=== PATIENT | female | born 2000 | race Hispanic/Latino ===

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

== ENCOUNTER 2025-02-18 19:00 | Emergency (ER) | payer BC, OTHER ==
--- OUTSIDE RECORDS SUMMARY | 2025-02-18 19:03 | XMS REPORT | Continuity of Care Document ---
Author Name Unknown Address [address] [facility] [facility] [address] [place] [address] [facility] Address [address] [facility] [address] [place] [address] Care Team Providers Care Stock Taker Name Role Phone Vitaly Savage Attending Clinician Unavailable Payers Payer Name Policy Type Policy Number Effective Date Expirati on Date Source [place] [id number] [facility] Problems Condition Name Condition Details Condition Category Status Onset Date Resolution Date Last Treatment Date Treating Clinician Comments Source Dehydratio n Dehydratio n Problem [facility] Hypothyroi dism Hypothyroi dism Problem [facility] Body mass index 40+ - severely obese Body mass index (BMI) 45.0-49.9, adult Problem [facility] Mixed hyperlipid emia Hyperlipem ia, mixed Problem [facility] Social History Social Habit Start Date Stop Date Quantity Comments Source History of Tobacco Use [facility] Sex Assigned At [facility] Smoking Status Start Date Stop Date Source Never Smoker [facility] Medications Ordered Medication Name Filled Medication Name Start Date Stop Date Current Medication? Ordering Clinician Indication Dosage Frequency Signature (SIG) Comments Components Source Levothyroxi ne Sodium Levothyroxi ne Sodium Yes Vitaly Savage 1 tablet on an empty stomach in the morning [facility] Phentermine HCl Phentermine HCl Yes Vitaly Savage 1 capsule [facility] Levothyroxi ne Sodium 75 MCG Levothyroxi ne Sodium 75 MCG No QD Levothyrox ine Sodium 75 MCG Levothyroxi ne Sodium 75 MCG Levothyroxi ne Sodium 75 MCG No Levothyrox ine Sodium 75 MCG Levothyroxi ne Sodium 75 MCG Levothyroxi ne Sodium 75 MCG No Levothyrox ine Sodium 75 MCG Vital Signs Vital Name Observation Time Observation Value Comments S isabella height 2022-05-07 11:40:00 63 [in_i] Commo n [facility] weight 2022-05-07 11:40:00 300 [lb_av] Comm on [facility] temperature 2022-05-07 11:40:00 97 [degF] Comm on [facility] bmi 2022-05-07 11:40:00 53.14 kg/m2 Comm on [facility] height 2021-08-26 15:00:00 63 [in_i] Commo n [facility] weight 2021-08-26 15:00:00 300 [lb_av] Comm on [facility] temperature 2021-08-26 15:00:00 98 [degF] Comm on [facility] bmi 2021-08-26 15:00:00 53.14 kg/m2 Comm on [facility] height 2021-05-26 09:50:00 63 [in_i] Commo n [facility] weight 2021-05-26 09:50:00 302.1 [lb_av] Co mmon [facility] temperature 2021-05-26 09:50:00 97.2 [degF] Com mon [facility] bmi 2021-05-26 09:50:00 53.51 kg/m2 Comm on [facility] oximetry 2021-05-26 09:50:00 97 % Commo n [facility] respiratory rate 2021-05-26 09:50:00 17 /min Common [facility] blood pressure systolic 2021-05-26 09:50:00 132 mm[Hg] Common [facility] blood pressure diastolic 2021-05-26 09:50:00 70 mm[Hg] [facility] Encounters Start Date/Time End Date/Time Encounter Type Admission Type Attending Clinicians Care Facility Care Department Encounter ID Source 2022-08-28 10:30:00 Outpatient Savage, Vitaly STLMLC STL[facility] [id number] [facility] 2022-05-01 11:22:00 Outpatient Savage, Vitaly STLMLC STL[facility]C [id number] [facility] 2021-11-19 14:07:21 Outpatient Savage, Vitaly STLMLC STLMLC [id number] [facility] 2021-11-19 14:05:18 Outpatient Savage, Viatly STLMLC STLMLC [id number] [facility] 2021-11-19 13:33:01 Outpatient Savage, Vitaly STLMLC STLMLC [id number] [facility] 2021-11-19 12:41:50 Outpatient Savage, Vitaly STLMLC STLMLC [id number] [facility] 2021-11-19 11:07:33 Outpatient Savage, Vitaly STLMLC STLMLC [id number] [facility] 2021-11-19 11:04:38 Outpatient Savage, Vitaly STLMLC STLMLC [id number] [facility] 2021-11-19 10:58:06 Outpatient Savage, Vitaly STLMLC STLMLC [id number] [facility] 2022-08-27 00:00:00 2022-08-27 00:00:00 (TEL) STLMLC STLMLC [id number] [facility] 2022-08-19 15:45:46 2022-08-19 15:45:46 Outpatient [facility]FA MARGARET [id number] [facility] Ar[facility] 2022-05-07 00:00:00 2022-05-07 00:00:00 OFFICE VISIT EST PT LEVEL 3 STLMLC STLMLC [id number] [facility] 2022-04-21 00:00:00 2022-04-21 00:00:00 (TEL) STLMLC STLMLC [id number] [facility] 2021-08-26 00:00:00 2021-08-26 00:00:00 OFFICE VISIT EST PT LEVEL 3 [facility]LMLC STLMLC [id number] [facility] 2021-08-19 00:00:00 2021-08-19 00:00:00 (TEL) STLMLC STLMLC [id number] [facility] 2021-05-26 00:00:00 2021-05-26 00:00:00 OFFICE VISIT ESTAB PT LEVEL 4 STLMLC STLMLC [id number] [facility] 2020-12-30 00:00:00 2020-12-30 00:00:00 Outpatient STLMLC STL[facility]C [id number] [facility] 2020-11-01 00:00:00 2020-11-01 00:00:00 Outpatient STLMLC STL[facility]C [id number] [facility] 2019-12-27 00:00:00 2019-12-27 00:00:00 Outpatient [facility] [id number] [facility] 2019-12-07 09:45:00 2019-12-07 09:45:00 [facility] [id number] [facility] 2019-10-30 08:00:00 2019-10-30 08:00:00 [facility] [id number] [facility] 2019-09-28 08:15:00 2019-09-28 08:15:00 [facility] [id number] [facility] 2019-08-16 08:00:00 2019-08-16 08:00:00 Outpatient [facility] [id number] [facility] 2019-06-12 15:45:00 2019-06-12 15:45:00 Outpatient [facility] [id number] [facility] 2019-05-08 14:15:00 2019-05-08 14:15:00 Outpatient [facility] [id number] [facility]
[2025-02-18] MEDS ORDERED: DICYCLOMINE HCL 20 MG/2 ML AMP IM ONE (21:26)
[2025-02-18] MEDS ORDERED: ONDANSETRON 4 MG/2 ML VIAL ONE ×2 (21:26→22:10)
[2025-02-18] MEDS ORDERED: FAMOTIDINE 20 MG/2 ML VIAL IV ONE (21:26)
[2025-02-18] MEDS ORDERED: NA CHLORIDE 0.9% 1,000 ML ONE (21:27)
[2025-02-18 21:39] LABS: Absolute Lymphocytes (CBC) 0.7 K/uL (0.7-4.9); Absolute Monocytes 0.3 K/uL (0.1-1.3); Absolute Neutrophil 7.5 K/uL (1.8-8.0); Basophils % 0.4 % (0-1.3); Eosinophils % 0.1 % (0-4.4); Hematocrit 41.6 % (36.0-45.0); Hemoglobin 14.1 g/dL (12.0-15.0); Lymphocytes % 8.5 % (15.3-44.8); MCHC 33.8 g/dL (32.0-36.0); MCV 88.8 fL (80-100); MPV 8.1 fL (7.6-11.3); Monocytes % 3.8 % (3.3-12.3); Neutrophils % 87.2 % (41.7-73.7); Nucleated Red Blood Cells % 0.1 % (0-0); Platelets 306 thou/uL (152-406); RBC Red Blood Cell Count 4.69 M/uL (3.86-4.86); Red Cell Distribution Width 15.6 % (12.1-15.2)
[2025-02-18 22:00] LABS: Albumin 3.6 g/dL (3.4-5.0); Anion Gap 9.5 mEq/L (5.0-15.0); Bilirubin Total 0.5 mg/dL (0.2-1.0); Globulin 3.7 g/dL (2.3-3.5); Potassium 3.5 mEq/L (3.5-5.1); Protein, Total 7.3 g/dL (6.4-8.2); Troponin High Sensitivity 7.5 pg/mL (<58.9)
--- NOTE | 2025-02-18 23:05 | ER ---
Nurse's Notes [facility] Name: Monika Anand Age: 24 yrs Sex: Female : 2000 Arrival Date: 02/18/2025 Time: 19:00 Bed 5 Private MD: Diagnosis: Acute gastroenteritis Presentation: 02/18 19:28 Chief complaint: Patient states: n/v/d, weakness, and chest pain starting this morning. al5 Coronavirus screen: At this time, the client does not indicate any symptoms associated with coronavirus-19. Ebola Screen: No symptoms or risks identified at this time. Initial Sepsis Screen: Does the patient meet any 2 criteria? HR > 90 bpm. No. Patient's initial sepsis screen is negative. Does the patient have a suspected source of infection? No. Patient's initial sepsis screen is negative. Risk Assessment: Do you want to hurt yourself or someone else? Patient reports no desire to harm self or others. Onset of symptoms was February 18, 2025. 19:28 Method Of Arrival: Ambulatory al5 19:28 Acuity: STACEY 3 al5 Triage Assessment: 19:29 General: Appears in no apparent distress. uncomfortable, Behavior is calm, cooperative. al5 Pain: Complains of pain in chest and suprapubic area Pain currently is 8 out of 10 on a pain scale. EENT: No signs and/or symptoms were reported regarding the EENT system. Neuro: Level of Consciousness is awake, alert, obeys commands, Oriented to person, place, time, situation. Cardiovascular: Capillary refill < 3 seconds Patient's skin is warm and dry. Respiratory: Airway is patent Respiratory effort is even, unlabored, Respiratory pattern is regular, symmetrical. GI: patient actively vomiting Reports lower abdominal pain, diarrhea, nausea, vomiting. : No signs and/or symptoms were reported regarding the genitourinary system. Derm: Skin is intact, is healthy with good turgor, Skin is pink, warm \T\ dry. normal. Musculoskeletal: No signs and/or symptoms reported regarding the musculoskeletal system. VP MEDICAL: 19:30 LMP 02/17/2025, unknown al5 Historical: - Allergies: 19:29 No Known Allergies; al5 - PMHx: 19:29 Thyroid problem; al5 - PSHx: 19:29 None; al5 - Immunization history:: Adult Immunizations up to date. - Infectious Disease History:: Denies. - Social history:: Smoking status: Reported history of juuling and/or vaping. - Family history:: not pertinent. Screenin:30 [facility] ED Fall Risk Assessment (Adult) History of falling in the last 3 months, al5 including since admission No falls in past 3 months (0 pts) Confusion or Disorientation No (0 pts) Intoxicated or Sedated No (0 pts) Impaired Gait No (0 pts) Mobility Assist Device Used No (0 pt) Altered Elimination No (0 pt) Score/Fall Risk Level 0 - 2 = Low Risk Maintained a safe environment. Abuse screen: Denies threats or abuse. Denies injuries from another. Nutritional screening: No deficits noted. Tuberculosis screening: No symptoms or risk factors identified. Assessment: 19:30 Reassessment: see triage assessment. al5 22:26 Reassessment: Patient appears in no apparent distress at this time. Patient and/or bm8 family updated on plan of care and expected duration. Pain level reassessed. Patient is alert, oriented x 3, equal unlabored respirations, skin warm/dry/pink. Patient states feeling better. Patient states symptoms have improved. GI: Abdomen is obese, Bowel sounds present X 4 quads. Reports nausea. 23:30 Reassessment: Patient appears in no apparent distress at this time. Patient and/or bm8 family updated on plan of care and expected duration. Pain level reassessed. Patient is alert, oriented x 3, equal unlabored respirations, skin warm/dry/pink. Pt waiting shot time for medication just received. Patient states symptoms have improved. 02/19 00:07 Reassessment: Patient appears in no apparent distress at this time. Patient and/or bm8 family updated on plan of care and expected duration. Pain level reassessed. Patient is alert, oriented x 3, equal unlabored respirations, skin warm/dry/pink. Patient states feeling better. Patient states symptoms have improved. Vital Signs: 02/18 19:28 BP 122 / 64; Pulse 106; Resp 18; Temp 99.5; Pulse Ox 97% on R/A; Weight 106.59 kg; al5 Height 5 ft. 3 in. ; Pain 8/10; 21:36 BP 133 / 78; Pulse 88; Resp 18; Temp 99.2; Pulse Ox 99% ; Pain 6/10; bm8 22:26 BP 115 / 62; Pulse 85; Resp 17; Temp 99.2; Pulse Ox 98% ; Pain 5/10; bm8 23:30 BP 121 / 74; Pulse 71; Resp 18; Temp 98.9; Pulse Ox 100% ; Pain 4/10; bm8 02/19 00:07 BP 115 / 68; Pulse 81; Resp 18; Temp 98.9; Pulse Ox 100% ; Pain 2/10; bm8 02/18 19:28 Body Mass Index 41.63 (106.59 kg, 160.02 cm) al5 02/18 19:28 Pain Scale: Adult al5 21:36 Pain Scale: Adult bm8 22:26 Pain Scale: Adult bm8 23:30 Pain Scale: Adult bm8 02/19 00:07 Pain Scale: Adult bm8 Albert Coma Score: 02/18 21:36 Eye Response: spontaneous(4). Motor Response: obeys commands(6). Verbal Response: bm8 oriented(5). Total: 15. 22:26 Eye Response: spontaneous(4). Motor Response: obeys commands(6). Verbal Response: bm8 oriented(5). Total: 15. 02/19 00:07 Eye Response: spontaneous(4). Motor Response: obeys commands(6). Verbal Response: bm8 oriented(5). Total: 15. ED Course: 02/18 19:04 Patient arrived in ED. sj2 19:04 Griffin Smiley MD is Attending Physician. rt 19:29 Triage completed. al5 19:30 Arm band placed on right wrist. Patient placed in waiting room, in view of staff al5 members, Patient notified of wait time. 19:30 Patient has correct armband on for positive identification. Provided Education on: al5 notification of wait time. 19:30 No provider procedures requiring assistance completed. al5 21:24 Kalia Hair, RN is Primary Nurse. bm8 21:36 Client placed on continuous cardiac and pulse oximetry monitoring. NIBP monitoring bm8 applied. Pulse ox on. NIBP on. Door closed. Noise minimized. Pillow given. Verbal reassurance given. Head of bed elevated. 21:36 Initial lab(s) drawn, by ED staff, sent to lab. EKG done, by ED staff, reviewed by Griffin Smiley MD. Inserted saline lock: 20 gauge in right antecubital area, using aseptic technique. Blood collected. Flushed with 10 mL NS. Patient maintains SpO2 saturation greater than 95% on room air. 23:31 IV discontinued, intact, bleeding controlled, No redness/swelling at site. Pressure bm8 dressing applied. Administered Medications: 21:35 Drug: Famotidine IVP 20 mg IVP once; dilute with 10 mL 0.9% NaCl; give over 2 minutes bm8 Route: IVP; Site: right antecubital; 22:26 Follow up: Response: No adverse reaction bm8 21:35 Drug: NS 0.9% IV 1000 ml IV at 1 bolus Per protocol; to be given as a bolus over 60 bm8 minutes Route: IV; Rate: 1 bolus; Site: right antecubital; 22:26 Follow up: Response: No adverse reaction; IV Status: Completed infusion bm8 21:36 Drug: Ondansetron IVP 4 mg IVP once; over 2 minutes Route: IVP; Site: right antecubital;bm8 22:26 Follow up: Response: No adverse reaction bm8 21:36 Drug: Dicyclomine IM 20 mg IM once Route: IM; Site: right deltoid; bm8 22:26 Follow up: Response: No adverse reaction bm8 22:20 Drug: Ondansetron IVP 4 mg IVP once; over 2 minutes Route: IVP; Site: right antecubital;bm8 02/19 00:08 Follow up: Response: No adverse reaction bm8 02/18 23:30 Drug: Ketorolac IVP 15 mg IVP once Route: IVP; Site: right antecubital; bm8 02/19 00:08 Follow up: Response: No adverse reaction bm8 02/18 23:30 Drug: Promethazine IVP 12.5 mg IVP once Route: IVP; Site: right antecubital; bm8 02/19 00:08 Follow up: Response: No adverse reaction bm8 Medication: 02/18 19:30 VIS not applicable for this client. al5 Outcome: 23:04 Discharge ordered by rt 23:31 Discharged to home ambulatory, 8 23:31 Condition: stable 23:31 Discharge instructions given to patient, family, Instructed on discharge instructions, follow up and referral plans. Demonstrated understanding of instructions, follow-up care, Prescriptions given X 23:32 Prescriptions given X 2, bm8 02/19 00:09 Patient left the ED. bm8 Signatures: Griffin Smiley MD MD rt McDonald, Brad RN RN bm8 Kylah Amador RN RN al5 Jourdan Perkins [facility]
--- NOTE | 2025-02-18 23:05 | EDPHYS ---
Physician Documentation [facility] Name: Monika Anand Age: 24 yrs Sex: Female : 2000 Arrival Date: 02/18/2025 Time: 19:00 Bed 5 Private MD: ED Physician Griffin Smiley HPI: 02/18 19:52 This 24 yrs old Female presents to ER via Ambulatory with complaints of rt Nausea/Vomiting/Diarrhea, General Weakness. 19:52 Patient presents to the ED with nausea, vomiting, diarrhea, generalized weakness rt starting today. Patient states that she not been able to keep anything to eat or drink by mouth, reports that the vomiting and diarrhea are nonbloody. Reports heartburn sensation as well as a generalized crampy abdominal pain. Symptoms are moderate in severity, no other aggravating or alleviating factors.. 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 - Infectious Disease History:: Denies. - Social history:: Smoking status: Reported history of juuling and/or vaping. - Family history:: not pertinent. ROS: 19:52 Constitutional: Negative for fever, chills, and weight loss, Respiratory: Negative for rt shortness of breath, cough, wheezing, and pleuritic chest pain, MS/Extremity: Negative for injury and deformity, Skin: Negative for injury, rash, and discoloration, Neuro: Negative for headache, weakness, numbness, tingling, and seizure, 19:52 Abdomen/GI: Positive for abdominal pain, nausea, vomiting, and diarrhea, Exam: 19:52 Constitutional: This is a well developed, well nourished patient who is awake, alert, rt and in no acute distress. Head/Face: Normocephalic, atraumatic. Chest/axilla: Normal chest wall appearance and motion. Nontender with no deformity. No lesions are appreciated. Cardiovascular: Regular rate and rhythm with a normal S1 and S2. No gallops, murmurs, or rubs. Normal PMI, no JVD. No pulse deficits. Respiratory: Lungs have equal breath sounds bilaterally, clear to auscultation and percussion. No rales, rhonchi or wheezes noted. No increased work of breathing, no retractions or nasal flaring. Abdomen/GI: Soft, non-tender, with normal bowel sounds. No distension or tympany. No guarding or rebound. No evidence of tenderness throughout. Skin: Warm, dry with normal turgor. Normal color with no rashes, no lesions, and no evidence of cellulitis. MS/ Extremity: Pulses equal, no cyanosis. Neurovascular intact. Full, normal range of motion. Neuro: Awake and alert, GCS 15, oriented to person, place, time, and situation. Cranial nerves II-XII grossly intact. Motor strength 5/5 in all extremities. Sensory grossly intact. Cerebellar exam normal. Normal gait. 19:52 ECG was reviewed by the Attending Physician. Vital Signs: 19:28 BP 122 / 64; Pulse 106; Resp 18; Temp 99.5; Pulse Ox 97% on R/A; Weight 106.59 kg; al5 Height 5 ft. 3 in. ; Pain 8/10; 21:36 BP 133 / 78; Pulse 88; Resp 18; Temp 99.2; Pulse Ox 99% ; Pain 6/10; bm8 22:26 BP 115 / 62; Pulse 85; Resp 17; Temp 99.2; Pulse Ox 98% ; Pain 5/10; bm8 23:30 BP 121 / 74; Pulse 71; Resp 18; Temp 98.9; Pulse Ox 100% ; Pain 4/10; bm8 02/19 00:07 BP 115 / 68; Pulse 81; Resp 18; Temp 98.9; Pulse Ox 100% ; Pain 2/10; bm8 02/18 19:28 Body Mass Index 41.63 (106.59 kg, 160.02 cm) al5 02/18 19:28 Pain Scale: Adult al5 21:36 Pain Scale: Adult bm8 22:26 Pain Scale: Adult bm8 23:30 Pain Scale: Adult bm8 02/19 00:07 Pain Scale: Adult bm8 Albert Coma Score: 02/18 21:36 Eye Response: spontaneous(4). Motor Response: obeys commands(6). Verbal Response: bm8 oriented(5). Total: 15. 22:26 Eye Response: spontaneous(4). Motor Response: obeys commands(6). Verbal Response: bm8 oriented(5). Total: 15. 02/19 00:07 Eye Response: spontaneous(4). Motor Response: obeys commands(6). Verbal Response: bm8 oriented(5). Total: 15. MDM: 02/18 19:33 Medical Screening Exam initiated rt 23:27 Differential diagnosis: Gastroenteritis, viral syndrome. Data reviewed: vital signs, rt nurses notes, lab test result(s). I considered the following discharge prescriptions or medication management in the emergency department Medications were administered in the Emergency Department. See MAR. Test considered but Not performed: CT: Patient has no focal abdominal tenderness, symptoms occurred after eating a hamburger, low suspicion for appendicitis, cholecystitis clinically. Do not believe that she requires CT scan at this time, vomiting improving with treatment in the ED, return precautions were discussed.. Counseling: I had a detailed discussion with the patient and/or guardian regarding the historical points, exam findings, and any diagnostic results supporting the discharge/admit diagnosis, lab results, the need for outpatient follow up, to return to the emergency department if symptoms worsen or persist or if there are any questions or concerns that arise at home. Response to treatment: the patient's symptoms have markedly improved after treatment. 02/18 19:34 Order name: CBC with Diff rt 02/18 19:34 Order name: CMP; Complete Time: 22:24 rt 02/18 19:34 Order name: Lipase; Complete Time: 22:24 rt 02/18 19:34 Order name: Troponin HS; Complete Time: 22:24 rt 02/18 19:34 Order name: Test, Serum; Complete Time: 22:24 rt 02/18 22:45 Order name: Manual Differential EDMS 02/18 19:34 Order name: EKG; Complete Time: 19:34 rt 02/18 19:34 Order name: IV Saline Lock; Complete Time: 21:36 rt 02/18 19:34 Order name: Labs collected and sent; Complete Time: 21:36 rt 02/18 19:34 Order name: EKG - Nurse/Tech; Complete Time: 19:37 rt EC:52 Rate is 103 beats/min. Rhythm is regular, Sinus tachycardia. QRS [place] is Normal. [place] rt interval is normal. QRS interval is normal. QT interval is normal. No Q waves. T waves are Normal. No ST changes noted. Interpreted by me. Administered Medications: 21:35 Drug: Famotidine IVP 20 mg IVP once; dilute with 10 mL 0.9% NaCl; give over 2 minutes bm8 Route: IVP; Site: right antecubital; 22:26 Follow up: Response: No adverse reaction bm8 21:35 Drug: NS 0.9% IV 1000 ml IV at 1 bolus Per protocol; to be given as a bolus over 60 bm8 minutes Route: IV; Rate: 1 bolus; Site: right antecubital; 22:26 Follow up: Response: No adverse reaction; IV Status: Completed infusion bm8 21:36 Drug: Ondansetron IVP 4 mg IVP once; over 2 minutes Route: IVP; Site: right antecubital;bm8 22:26 Follow up: Response: No adverse reaction bm8 21:36 Drug: Dicyclomine IM 20 mg IM once Route: IM; Site: right deltoid; bm8 22:26 Follow up: Response: No adverse reaction bm8 22:20 Drug: Ondansetron IVP 4 mg IVP once; over 2 minutes Route: IVP; Site: right antecubital;bm8 02/19 00:08 Follow up: Response: No adverse reaction bm8 02/18 23:30 Drug: Ketorolac IVP 15 mg IVP once Route: IVP; Site: right antecubital; bm8 02/19 00:08 Follow up: Response: No adverse reaction 8 02/18 23:30 Drug: Promethazine IVP 12.5 mg IVP once Route: IVP; Site: right antecubital; bm8 02/19 00:08 Follow up: Response: No adverse reaction bm8 Disposition Summary: 02/18/25 23:04 Discharge Ordered Notes: Location: Home rt Problem: new rt Symptoms: have improved rt Condition: Stable rt Diagnosis - Acute gastroenteritis rt Followup: rt - With: Private Physician - When: 2 - 3 days - Reason: Discharge Instructions: - Discharge Summary Sheet rt - Viral Gastroenteritis, Adult rt Forms: - Work release form rt - Medication Reconciliation Form rt - Antibiotic Education rt - Prescription Opioid Use rt - Patient Portal Instructions rt - Leadership Thank You Letter rt Prescriptions: - ondansetron 4 mg Oral Tablet,disintegrating - take 1 tablet ORAL route every 6 hours as needed for nausea; 15 tablet; rt Refills: 0, Product Selection Permitted - dicyclomine 20 mg Oral tablet - take 1 tablet ORAL route 3 times per day as needed for abdominal pain; 15 rt tablet; Refills: 0, Product Selection Permitted Signatures: Dispatcher [employer] EDMS Griffin Smiley MD MD rt Kalia Hair, RN RN bm8 Kylah Amador RN RN al5 Corrections: (The following items were deleted from the chart) 02/18 19:34 19:34 CBC+H.LAB.BRZ ordered. EDMS EDMS 19:34 19:34 COMPREHENSIVE METABOLIC PANEL+C.LAB.BRZ ordered. EDMS EDMS 19:34 19:34 LIPASE+C.LAB.BRZ ordered. EDMS EDMS 19:34 19:34 Troponin High Sensitivity+C.LAB.BRZ ordered. EDMS EDMS 22:45 21:46 CBC Smear Scan ordered. EDMS EDMS
[2025-02-18] MEDS ORDERED: KETOROLAC 30 MG/ML INJ ONE (23:25)
[2025-02-18] MEDS ORDERED: PROMETHAZINE INJ 25 MG/ML AMP ONE (23:25)
[2025-02-19 00:26] LABS: Band Neutrophils 14 % (0-1); Blood Morphology Comment NOT SEEN (NOT SEEN); Differential Total Cells Count 100; Lymphocytes 7 % (15-42); Monocytes 1 % (0-10); Platelet Estimate ADEQ; Reactive Lymphocytes 1 %; Segmented Neutrophils 76 % (40-80)
--- NOTE | 2025-02-19 12:08 | EKG ---
Test Date: 2025-02-18 Test Time: 19:35:52 Rn Clinical Trials: CHARLY MEASUREMENT RESULTS: Intervals: Rate: 103 DC: 132 QRSD: 68 QT: 346 QTc: 453 Allons: P: 71 DC: 132 QRS: 84 T: 9 INTERPRETIVE STATEMENTS: Sinus tachycardia Right atrial enlargement Borderline ECG No previous ECG available for comparison Electronically Signed On 02-19-25 12:06:33 CDT by Manuel Bay
[2025-02-20 10:37] VITALS: TEMP 98.9; O2SAT 100
[2025-02-20 10:38] VITALS: BP 115/68
== END 2025-02-19 00:09 | disposition home or self-care (01) ==
LOC: ER 19:00
DX: K52.9 Noninfective gastroenteritis and colitis, unspecified (principal)
CPT/HCPCS: 96361; 93005; 85025; 36415; 84703; 84484; 83690; 80053; 96375; 96372; 96374; 99284; J2550; J0500; J2405 ×2; J7030